=== PATIENT | male | born 1970 | race Caucasian/White ===

== ENCOUNTER 2017-02-05 01:05 | Emergency (ER) | payer SELFPAY ==
[2017-02-05 01:13] VITALS: BP 108/66
[2017-02-05] MEDS ORDERED: TETANUS AND DIPHTHERIA TOXOID 0.5 ML SYRG IM ONE (01:20)
[2017-02-05] MEDS ORDERED: DIPHTH,PERTUSS(ACELL),TET VAC 0.5 ML VIAL IM ONE ×2 (01:21→01:22)
--- NOTE | 2017-02-05 01:25 | ERNOTE ---
Lower Extremity HPI - Narrative Date of Service: 02/05/17 - General Time Seen by Provider: 02/05/17 01:17 Source: patient Exam Limitations: no limitations - Immun/Allergies/Home Medications Immunizations: IMMUNIZATION HX Immunizations Up to Date Yes History of Influenza Vaccine No Hx Pneumococcal Vaccination No Allergies/Adverse Reactions: Allergies Allergy/AdvReac Type Severity Reaction Status Date / Time No Known Allergies Allergy Verified 02/05/17 01:13 Home Medications: HOME MEDICATIONS NK [No Home Medication] 09/05/12 [Last Taken Unknown] - History of Present Illness Narrative: This is a 46-year-old male who was under arrest. As he was walking into the booking station he stumbled and tripped over a step. He landed on his left knee. He is complaining of a superficial abrasion to the knee. He says "it hurts a little bit when I walk". 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 Method of Injury: Reports: fell Reason for Fall: Reports: lost balance Loss of Consciousness: Reports: no loss of consciousness Modifying Factors - (Improves): Reports: other - nothing Modifying Factors - (Worsens): Reports: other Associated Symptoms: Denies: snapping, popping sensation, dizzy/light headedness , headache, weakness, sensory loss, chest pain, vomiting/diarrhea, other injuries Other Injuries: Reports: none Review of Systems - Review of Systems Constitutional: Present: no symptoms reported EYE: Present: no symptoms reported ENT: Present: no symptoms reported Respiratory: Present: no symptoms reported Cardiology: Present: no symptoms reported Gastrointestinal/Abdominal: Present: no symptoms reported Genitourinary: Present: no symptoms reported Musculoskeletal: Present: other - pain in the left knee Skin: Present: See HPI, other - time E superficial scratches to the left knee horizontal. Neurological: Present: no symptoms reported Endocrine: Present: no symptoms reported Hematologic/Lymphatic: Present: no symptoms reported Psych: Present: no symptoms reported All Other Systems: All systems neg except as marked - Patient's Past Medical History Patient History - Medical: No pertinent hx Patient History - Cardiac/Respiratory: No pertinent hx Patient History - Cancer: No Hx of Cancer Patient History - Surgical Procedures: No surgical history Patient History - Other: None - Social History Living Situations: home Psych History: Hx of Depression Smoking Status: Current every day smoker Alcohol Use: heavy Drug Use: none - Immunizations Immunizations Up to Date: Yes Hx Pneumococcal Vaccination: No History of Influenza Vaccine: No Physical Exam - Physical Exam General Appearance: Present: wd/wn, alert, no apparent distress, other - smells strongly of alcohol Head Exam: Present: normal inspection, no evidence of injury Eye Exam: Normal inspection: bilateral, PERRL: bilateral, EOMI: bilateral Ears, Nose, Throat: Present: normal ENT inspection Neck: Present: normal inspection, nontender Respiratory: Present: no respiratory distress, normal breath sounds, chest nontender, lungs clear Cardiovascular/Chest: Present: regular rate, rhythm, no murmur, normal peripheral pulses Gastrointestinal/Abdominal: Present: normal bowel sounds, nontender, soft Back Exam: Present: normal inspection, normal range of motion, no vertebral tenderness Extremity Exam: Present: other - superficial abrasions to the left knee scratches horizontal 3 cm and 2 cm in length. Bleeding controlled. These are only through the epidermis Neurological Exam: Present: alert, oriented, normal mood/affect, no motor/ sensory deficits Skin Exam: Present: normal color, warm/dry, other - abrasions as above Lymphatic Exam: Present: no adenopathy ED Progress - Vital Signs Patient's Vital Signs:: I have reviewed the patient's vital signs. Vital Signs: Vital Signs 02/05/17 01:09 Temperature 36.5 C Pulse Rate 103 H Respiratory 18 Rate Blood Pressure 108/66 O2 Sat by Pulse 97 Oximetry - Progress/Reassessment Chief Complaint: Lower Extremity Pain/ Injury Plan - Plan Plan: 46-year-old male with superficial abrasions to the left knee. He is able to walk without any difficulty. Able to bear weight. No ligamentous instability. He does need a tetanus shot. He will be released in [place] police custody Departure Clinical Impression: Contusion, knee - Departure Disposition: Half-Way Condition: Stable Instructions: Hematoma
== END 2017-02-05 01:28 ==
LOC: ER 01:05
DX: S80.02XA Contusion of left knee, initial encounter (principal); F17.200 Nicotine dependence, unspecified, uncomplicated; W17.89XA Other fall from one level to another, initial encounter; Y92.89 Other specified places as the place of occurrence of the external cause; Z23 Encounter for immunization